=== PATIENT | female | born 1945 | race Caucasian/White ===

== ENCOUNTER 2019-03-26 12:34 | Inpatient (IN) | payer OTHER, MEDICARE ==
[~2019-03-26] VITALS: Ht 167.6 cm; Wt 76.3 kg
--- NOTE | 2019-03-26 12:48 | NUR ---
The patient, FAROOQ DEVLIN, 74 y/o, F admitted by HOLGER CURTIS MD, was given written information regarding hospital policies, unit procedures and contact persons. Valuables were checked and logged.
[2019-03-26] MEDS ORDERED: CRESTOR10 MG PO (13:01)
[2019-03-26] MEDS ORDERED: MONT10TA80 PO (13:01)
[2019-03-26] MEDS ORDERED: LEVO125T5 PO (13:01)
[2019-03-26] MEDS: IV NORMAL SALINE 1,000ML 1,000 ML IV SCH ×5 (13:45→22:17)
[2019-03-26 13:50] VITALS: BP 139/75
[2019-03-26 14:12] LABS: BASO % 0 % (0-3); EOS # 0.1 x10^3/uL (0.0-0.7); EOS % 1 % (0-3); HEMATOCRIT 39.9 % (36.0-47.0); HEMOGLOBIN 13.3 g/dL (12.0-15.5); LYMPH # 1.2 x10^3/uL (1.0-4.8); LYMPH % 19 % (24-48); MEAN CORPUSCULAR HEMOGLOBIN 31 pg (25-35); MEAN CORPUSCULAR HGB CONC 33 g/dL (31-37); MEAN CORPUSCULAR VOLUME 94 fL (79-100); MONO # 0.9 x10^3/uL (0.0-1.1); MONO % 14 % (0-9); NEUT # 4.2 x10^3uL (1.8-7.7); NEUT % 66 % (31-73); PLATELET COUNT 257 x10^3/uL (140-400); RED BLOOD COUNT 4.24 x10^6/uL (3.50-5.40); RED CELL DISTRIBUTION WIDTH 13.3 % (11.5-14.5); WHITE BLOOD COUNT 6.3 x10^3/uL (4.0-11.0)
[2019-03-26 14:20] LABS: ALBUMIN 2.7 g/dL (3.4-5.0); ALBUMIN/GLOBULIN RATIO 0.9 (1.0-1.7); CALCIUM 8.7 mg/dL (8.5-10.1); CREATININE 0.6 mg/dL (0.6-1.0); POTASSIUM 3.2 mmol/L (3.5-5.1); TOTAL BILIRUBIN 0.3 mg/dL (0.2-1.0); TOTAL PROTEIN 5.8 g/dL (6.4-8.2)
--- NOTE | 2019-03-26 14:51 | NUR ---
New order received from Dr. Glover via telephone for CT scan of abdomen and pelvis with out contrast, IV Potassium per protocol, and complete abdominal ultrasound.
[2019-03-26] MEDS: POTASSIUM CHLORIDE 10MEQ 100 ML IV SCH ×4 (15:20→18:00)
[2019-03-26 15:31] LABS: % BANDS 3 % (0-9); % BASOS 0 % (0-3); % EOS 1 % (0-5); % LYMPHS 23 % (24-48); % MONOS 10 % (0-10); % SEGS 63 % (35-66); PLT ESTIMATE ADEQUATE (ADEQUATE)
[2019-03-26] MEDS ORDERED: ONDANSETRON PF 4 MG/2 ML VIAL. IVP PRN (15:45)
[2019-03-26] MEDS ORDERED: IOHEXOL 350 MG/ML 100 ML VIAL. IV ONE (15:45)
[2019-03-26] MEDS ORDERED: diphenhydrAMINE 50 MG/ML VIAL IVP PRN (15:45)
--- NOTE | 2019-03-26 16:21 | RAD ---
PQRS Compliance statement: One or more of the following individualized dose reduction techniques were utilized for this examination: 1. Automated exposure control. 2. Adjustment of the mA and/or kV according to patient size. 3. Use of iterative reconstruction technique. INDICATION: Upper abdominal pain. TECHNIQUE: CT angiogram chest and CT abdomen pelvis in portal venous phase with IV contrast with reformats COMPARISON: None FINDINGS: Suboptimal PE study due to contrast bolus timing. There are no central filling defects in the pulmonary arteries. Evaluation of distal segmental and subsegmental pulmonary arteries is limited. Heart is normal in size. No pericardial or pleural effusion. Mild diffuse atherosclerotic plaque in the thoracic aorta. No enlarged axillary, mediastinal or hilar adenopathy. Lungs are clear. No suspicious bony lesions in the chest. Liver, spleen, pancreas, adrenals and left kidney are within normal limits. 1 cm simple cyst in the right kidney. Multiple gallstones noted. No pericholecystic fluid or inflammatory changes. Moderate atherosclerotic plaque is seen in the abdominal aorta. No free pelvic fluid or ascites. No bowel obstruction. Long segment circumferential wall thickening is seen of the descending colon and rectosigmoid colon. The celiac axis, SMA are grossly patent. No pneumoperitoneum. Uterus is present. Urinary bladder demonstrates no radiopaque stone. No suspicious bony lesion. IMPRESSION: Long segment colitis involving descending colon and rectosigmoid colon. Cholelithiasis without imaging evidence of acute cholecystitis. If concern persists further evaluation with HIDA scan recommended. Suboptimal PE study due to contrast bolus timing. No central or proximal segmental PE. Evaluation of distal segmental and subsegmental pulmonary arteries is limited. Electronically signed by: Christiano White DO (03/26/2019 4:18 PM) [facility]
--- NOTE | 2019-03-26 17:32 | RAD ---
Complete abdomen ultrasound study Clinical indications: Diarrhea FINDINGS: The tail and body of the pancreas are obscured by overlying bowel gas. The intrahepatic portion of the IVC is unremarkable. The abdominal aorta is obscured by overlying bowel gas. There is diffuse attenuation of sound throughout the liver which may be seen with fatty infiltration of the liver. This decreases the sensitivity of sonography to detect focal hepatic lesions. No focal hepatic mass is seen otherwise. Liver measures 14.6 cm in length which is normal. The length of the right kidney is 12.3 cm. The length of left kidney is 12.2 cm. No hydronephrosis or renal mass or perinephric fluid collection is seen on either side. There is diffuse acoustic attenuation throughout the gallbladder consistent with multiple gallstones. This completely shadows the gallbladder. Anterior gallbladder wall measures 2.4 mm in thickness. The extra hepatic bile duct measures 5 mm in caliber which is normal. The spleen measures 10.7 cm in length which is normal. IMPRESSION: Cholelithiasis. The gallbladder is completely filled with gallstones which completely shadows the gallbladder. Fatty infiltration of the liver. Electronically signed by: Renard Henley MD (03/26/2019 5:29 PM) [facility]
--- NOTE | 2019-03-26 17:49 | NUR ---
Informed Dr Paris of patient's CT and ultra sound results. New order for Flagy IV 500mg q 8, hepatobilary scan, CDIFF stool sample, BPM DEVELOPER stool, O/P stool, and fecal WBCs received.
[2019-03-26] MEDS ORDERED: ZOLPIDEM 5 MG TABLET. PO PRN (19:00)
[2019-03-26] MEDS ORDERED: ONDANSETRON ODT 4 MG TAB.RAPDIS PO PRN (19:00)
[2019-03-26] MEDS ORDERED: HYDROmorphone PF 2 MG/ML VIAL IV PRN (19:00)
[2019-03-26 19:19] VITALS: BP 138/69
[2019-03-26] MEDS: ENOXAPARIN 40 MG/0.4 ML SYRINGE. SQ SCH (21:38)
[2019-03-26 23:11] VITALS: BP 122/75
--- NOTE | 2019-03-27 01:44 | NUR ---
Pt calm, compliant and pleasant. Rested off and on through the evening. Denies pain. Will continue to monitor.
[2019-03-27 05:13] VITALS: BP 121/72
[2019-03-27] MEDS: IV NORMAL SALINE 1,000ML 1,000 ML IV SCH ×2 (05:27→13:31)
[2019-03-27 06:49] LABS: BASO % 1 % (0-3); EOS # 0.1 x10^3/uL (0.0-0.7); EOS % 1 % (0-3); HEMATOCRIT 37.4 % (36.0-47.0); HEMOGLOBIN 12.7 g/dL (12.0-15.5); LYMPH % 19 % (24-48); MEAN CORPUSCULAR HEMOGLOBIN 32 pg (25-35); MEAN CORPUSCULAR HGB CONC 34 g/dL (31-37); MEAN CORPUSCULAR VOLUME 94 fL (79-100); MONO # 0.9 x10^3/uL (0.0-1.1); MONO % 17 % (0-9); NEUT # 3.3 x10^3uL (1.8-7.7); NEUT % 63 % (31-73); PLATELET COUNT 241 x10^3/uL (140-400); RED BLOOD COUNT 3.99 x10^6/uL (3.50-5.40); RED CELL DISTRIBUTION WIDTH 13.4 % (11.5-14.5); WHITE BLOOD COUNT 5.2 x10^3/uL (4.0-11.0)
[2019-03-27 06:55] LABS: CALCIUM 8.1 mg/dL (8.5-10.1); POTASSIUM 3.6 mmol/L (3.5-5.1)
[2019-03-27 07:00] LABS: CREATININE 0.5 mg/dL (0.6-1.0); GFR 120.9
[2019-03-27] MEDS ORDERED: LACTOBACILLUS RHAMNOSUS GG 1 CAPSULE. PO SCH (09:00)
[2019-03-27] MEDS ORDERED: MORPHINE SULFATE 4 MG/ML DISP.SYRIN. IV ONE (10:30)
[2019-03-27 12:07] VITALS: BP 142/67
[2019-03-27 12:12] LABS: BACTERIA,URINE 0 /HPF (0-FEW); BILIRUBIN,URINE NEG (NEG); CLARITY,URINE CLOUDY; COLOR,URINE YELLOW; GLUCOSE,URINE NEG (NEG); NITRITE,URINE NEG (NEG); SQUAMOUS EPITHELIAL CELL,UR MOD /LPF; UROBILINOGEN,URINE 0.2 mg/dL (0.2 mg/dL)
--- NOTE | 2019-03-27 13:09 | RAD ---
Hepatobiliary scan. HISTORY: Abdominal pain A hepatobiliary scan was done using 5.5 mCi technetium 99m Choletec. Initial image of the liver is unremarkable. Bile ducts are noted at 15 minutes. Bowel activity is noted at 20 minutes. Gallbladder activity is not identified during the first 1 hour. Patient was injected with 4 mg of morphine after the 60 minute image. Further follow-up images show mild gallbladder activity on the post morphine images. IMPRESSION: 1. Initial nonvisualization of the gallbladder during the first 1 hour. 2. Gallbladder is visualized on the images taken following morphine. Electronically signed by: Richard Marroquin MD (03/27/2019 1:05 PM) [facility]
[2019-03-27 15:26] VITALS: BP 154/74
[2019-03-27] MEDS ORDERED: MONTELUKAST 10 MG TABLET. PO PRN (16:15)
[2019-03-27] MEDS: CLOBETASOL EMOLLIENT 0.05% TOPICAL CREAM 15GM TUBE. TP SCH ×2 (16:27→21:00)
[2019-03-27 19:40] VITALS: BP 126/68
[2019-03-27] MEDS: ATORVASTATIN CALCIUM 20 MG TABLET PO SCH (21:00)
[2019-03-27] MEDS: ENOXAPARIN 40 MG/0.4 ML SYRINGE. SQ SCH (21:00)
[2019-03-27 22:46] VITALS: BP 117/70
[2019-03-28] MEDS: IV NORMAL SALINE 1,000ML 1,000 ML IV SCH ×3 (01:45→19:45)
[2019-03-28 05:30] VITALS: BP 118/76
[2019-03-28] MEDS: LEVOTHYROXINE 125 MCG TABLET PO SCH (06:00)
--- NOTE | 2019-03-28 06:38 | NUR ---
Pt rested most of the night. Denies pain. Concerned about more that she could do to help the colitis heal faster. Eager to have gallbladder surgery. Will continue to monitor.
[2019-03-28] MEDS: CLOBETASOL EMOLLIENT 0.05% TOPICAL CREAM 15GM TUBE. TP SCH ×3 (10:15→21:18)
[2019-03-28 11:00] VITALS: BP 136/75
[2019-03-28] MEDS: ACETAMINOPHEN 325 MG TABLET PO PRN (13:38)
[2019-03-28 15:00] VITALS: BP 136/80
[2019-03-28 19:31] VITALS: BP 139/61
[2019-03-28] MEDS: ENOXAPARIN 40 MG/0.4 ML SYRINGE. SQ SCH (21:18)
[2019-03-28] MEDS: ATORVASTATIN CALCIUM 20 MG TABLET PO SCH (21:18)
[2019-03-29] MEDS: IV NORMAL SALINE 1,000ML 1,000 ML IV SCH (01:45)
[2019-03-29] MEDS: LEVOTHYROXINE 125 MCG TABLET PO SCH (05:10)
[2019-03-29 05:14] VITALS: BP 138/81
[2019-03-29] MEDS: ACETAMINOPHEN 325 MG TABLET PO PRN (06:18)
[2019-03-29] MEDS ORDERED: LEVO500T59 PO (08:58)
[2019-03-29] MEDS ORDERED: CLOB15CR TP (08:58)
[2019-03-29] MEDS ORDERED: METR-34 PO (08:58)
[2019-03-29] MEDS: CLOBETASOL EMOLLIENT 0.05% TOPICAL CREAM 15GM TUBE. TP SCH (09:00)
--- NOTE | 2019-03-29 09:59 | PN ---
DATE: SUBJECTIVE: A 74-year-old female recently returned back from a trip back to [place]. The patient is having a severe looks like contact dermatitis to the back of her legs, rashes. Been on triamcinolone without success. We will try her on Clobetasol there. Otherwise, the patient had significant diarrhea when she first came into the office, although that has slowed down. The CAT scan does demonstrate significance of a large segment of colitis involving the descending colon and rectosigmoid area. She has cholelithiasis, but no active sites of cholecystitis and she is negative for PE, even though she does have a positive D-dimer. The patient is resting fairly comfortably, making fairly good progress. We will advance her diet now that her nausea and vomiting slowed down. We are still waiting to get back to the tip of the scan, which shows her gallbladder is not working very well, so we will probably have to have that removed, but first things first we will need to get that situation cleared up with her colitis, which was fairly significant I think before any surgeon can lay their hands on her gallbladder. IMPRESSION: Colitis, probably infectious. PLAN: As above. Continue with IV Flagyl. Advance diet quietly and make further evaluation if she has any stools for O and P, C and S and C. diff. HOLGER CURTIS MD DR: MARISA/roz JOB#: [id number] / [id number]
--- NOTE | 2019-03-29 10:00 | PN ---
DATE: SUBJECTIVE: This 74-year-old patient came in because she had been traveling to [place], came home and was having significant problems. The patient did have long segment of colitis in the descending and rectosigmoid colon, although she seems to be improving there. She is having diarrhea, but her nausea and vomiting has slowed down to the point where she can eat and drink okay. OBJECTIVE: VITAL SIGNS: Blood pressure 118/76, respiratory rate 20, pulse 72, afebrile. GENERAL: The patient is feeling much better. Alert and oriented. LUNGS: Diminished throughout, but clear. CARDIOVASCULAR: Regular sinus rhythm. ABDOMEN: Soft, nontender. The left lower quadrant is somewhat tender, but markedly improved from where they were. She continues to be monitored. LABORATORY DATA: White count was basically unremarkable. Electrolytes were stable. She had normal liver enzymes, severe protein malnutrition, elevated D-dimer. C. difficile came back negative. IMPRESSION: Therefore of colitis, diarrhea, foreign travel to [place], severe protein malnutrition, severe cholelithiasis with multiple stones in the gallbladder, hypertension, resolved and nausea, vomiting, dehydration improved. ____ will continue to be monitored carefully. Still waiting for stool O and P, C and S to be returned to get a better idea of what may have caused this infection, no doubt from [place]. HOLGER CURTIS MD DR: MARISA/roz JOB#: [id number] / [id number]
--- NOTE | 2019-03-29 10:32 | NUR ---
Discharge Note: FAROOQ DEVLIN J1 [facility] Discharge instructions and discharge home medications reviewed with Patient and a copy given. All questions have been answered and understanding verbalized. The following instructions and handouts were given: Take medications as prescribed, follow up with Primary Care Provider in 7-10 days or sooner if needed. Discontinued lines and drains: Peripheral IV discontinued, pressure dressing applied, catheter tip intact, no apparant complications. Patient discharged to home.
--- NOTE | 2019-04-23 20:05 | DS ---
DATE OF DISCHARGE: 03/29/2019 HOSPITAL COURSE: A 74-year-old female came in. She has been having severe nausea, vomiting, and diarrhea. The patient was having bloody stools and a severe left lower quadrant pain. The patient was admitted for a hydration and further evaluation. The patient also was noted to have cholelithiasis. There was a long segment of colitis involving the descending and the rectosigmoid colon as well. The patient was negative for a PE and other than that, the patient's abdominal ultrasound demonstrated a fatty liver and a gallbladder completely filled with gallstones. In any case, the patient made good progress. Her labs did demonstrate the patient had a salmonella infection in her stool. She was also noted to have a urinary tract infection. The patient was negative for C. diff and for ova and parasites. The patient's urine was with Proteus mirabilis and she had been treated appropriately with the IV antibiotics initially for this. The stool itself was noted, Salmonella species, group D was noted. The patient made an excellent progress and she was put on oral antibiotics. There were no complications. She was discharged home. She will follow up as an outpatient and it was reported to the Health Department. IMPRESSION: Therefore of colitis of the descending and rectosigmoid colon. Salmonella group D infection, obtained from [place]. She was in the [place]. Urinary tract infection, Proteus mirabilis. The patient will be discharged home on her home antibiotics, see [facility], and a soft diet for now. Should follow up in about 6 weeks to get a colonoscopy and see a rope tier for further evaluation. HOLGER CURTIS MD DR: MARISA/roz JOB#: [id number] / [id number]
== END 2019-03-29 10:38 | disposition home or self-care (01) | DRG 371 ==
LOC: 1 SOUTH 12:34
PROVIDERS: ADMIT Family Medicine; ATTEND Family Medicine
DX: A04.9 Bacterial intestinal infection, unspecified (principal); E43 Unspecified severe protein-calorie malnutrition; L25.9 Unspecified contact dermatitis, unspecified cause; K80.20 Calculus of gallbladder without cholecystitis without obstruction; E86.0 Dehydration; Z68.27 Body mass index [BMI] 27.0-27.9, adult; I10 Essential (primary) hypertension
CPT/HCPCS: 36415; 71275; 74177; 76700; 78227; 80048; 80053; 81001; 83605; 83690; 84132; 85007; 85025; 85379; 85610; 87040; 87045; 87086; 87177; 87186; 87493; A9537; J1650; J1956; J2270; J3480; J3490; Q9967; J7030